=== PATIENT | female | born 1950 | race Caucasian/White ===

== ENCOUNTER 2017-02-08 15:30 | Emergency (ER) | payer SELFPAY ==
[~2017-02-08 15:30] MED LIST: HYDROCODON-ACE1 EAC9 PO; PROZAC PO
== END 2017-02-08 15:32 | disposition home or self-care (01) ==
LOC: CFTX 15:30
DX: L23.7 Allergic contact dermatitis due to plants, except food (principal)
CPT/HCPCS: 96372; 99283; J3301